=== PATIENT | female | born 1945 | race Asian ===

== ENCOUNTER 2019-12-14 16:41 | Emergency (ER) | payer OTHER ==
[~2019-12-14] VITALS: Ht 160 cm; Wt 79.5 kg
[2019-12-14] MEDS ORDERED: LOSA25TA71 PO (17:11)
[2019-12-14] MEDS ORDERED: VERA120T33 PO (17:11)
[2019-12-14 17:30] LABS: BASOPHILS % (AUTO) 0.9 % (0.0-2.0); EOSINOPHILS % (AUTO) 3.5 % (1.0-6.0); HEMATOCRIT 40.1 % (36-46); HEMOGLOBIN 12.9 g/dL (12.0-16.0); LYMPHOCYTES % (AUTO) 23.1 % (22.0-44.0); MEAN CORPUSCULAR HEMOGLOBIN 29.6 pg (26.0-34.0); MEAN CORPUSCULAR HGB CONC 32.2 G/dL (31.0-37.0); MEAN CORPUSCULAR VOLUME 92 fL (80-100); MONOCYTES # (AUTO) 0.6 K/uL (0.1-1.0); NEUTROPHILS # (AUTO) 5.8 K/uL (1.8-7.7); NEUTROPHILS % (AUTO) 65.5 % (40.0-70.0); PLATELET COUNT (AUTO) 384 K/uL (150-450); RED BLOOD CELL COUNT(AUTO) 4.36 MIL/uL (4.00-5.20); RED CELL DISTRIBUTION WIDTH 13.3 % (11.5-14.5)
[2019-12-14 17:47] LABS: ANION GAP 8 mmol/L (8-16); CALCIUM, TOTAL 9.3 mg/dL (8.8-10.5); CARBON DIOXIDE 28 mmol/L (22-29); CHLORIDE 102 mmol/L (98-107); CREATININE 0.63 mg/dL (0.60-1.30); GLUCOSE,RANDOM 116 mg/dL (70-110); POTASSIUM 3.6 mmol/L (3.5-5.1); SODIUM SERUM 138 mmol/L (136-145); UREA NITROGEN, BLOOD 14 mg/dL (7-18)
[2019-12-14 17:49] LABS: GLOMERULAR FILTR. RATE CALC > 60 mL/min (>60)
[2019-12-14 17:51] LABS: ALANINE AMINOTRANSFERASE 32 U/L (12-78); ALBUMIN 3.8 g/dL (3.4-5.0); ALKALINE PHOSPHATASE 101 U/L (46-116); ASPARTATE AMINOTRANSFERASE 19 U/L (15-37); BILIRUBIN,TOTAL 0.3 mg/dL (0.1-1.0); LIPASE 166 U/L (73-393); TOTAL PROTEIN, SERUM 7.6 g/dL (6.4-8.2)
[2019-12-14 17:53] LABS: AMMONIA 22 umol/L (11-32)
[2019-12-14 17:56] LABS: TROPONIN I < 0.02 ng/mL (0.00-0.05)
[2019-12-14 17:57] LABS: LACTIC ACID 1.3 mmol/L (0.4-2.0)
[2019-12-14 21:14] VITALS: BP 167/80
== END 2019-12-14 21:59 | disposition short-term general hospital (02) ==
LOC: EMS 16:44
DX: F69 Unspecified disorder of adult personality and behavior (principal); I10 Essential (primary) hypertension
CPT/HCPCS: 36415; 70450; 71045; 80053; 82140; 83605; 83690; 83735; 84484; 85025; 87040; 93005; 99285; G0480